=== PATIENT | female | born 1975 | race Caucasian/White ===

== ENCOUNTER 2023-09-13 09:28 | Day surgery (SDC) | payer BC, SELFPAY ==
[2023-09-13] MEDS: LACTATED RINGERS 1000 ML 1,000 ML 100 ML IV (09:45)
[2023-09-13 10:03] VITALS: BP 136/83; PULSE 52; RESP 16; TEMP 36.3; O2SAT 95
[2023-09-13 10:04] VITALS: BMI 51.2
[2023-09-13] MEDS: BUPIVACAINE 0.25% 30 ML INJECTION (11:24)
[2023-09-13] MEDS: CEFAZOLIN 1 GM inj IVP (11:31)
--- NOTE | 2023-09-13 11:46 | SUR.OPER ---
LOCAL BLOCK COMPLETED PER SURGEON AT 1124; TIMEOUT COMPLETED AT THAT TIME
--- NOTE | 2023-09-13 12:09 | W.ANESCHARGE ---
Anesthesia Charges Start Date/Time Anesthesia Start Date: 09/13/23 Anesthesia Start Time: 11:28 Stop Date/Time Anesthesia Stop Date: 09/13/23 Anesthesia Stop Time: 12:28
[2023-09-13 12:27] VITALS: BP 106/64; PULSE 78; RESP 16; TEMP 36.2; O2SAT 95
--- NOTE | 2023-09-13 12:29 | W.PM.PODPROC ---
Date of Procedure: 09/13/23 Surgeon: Yousif Patricio DPM Pre-op Diagnosis: Ganglion cyst right foot Post-op Diagnosis: ganglion cyst right foot Type of Procedure: 1. excision of ganglion cyst right foot Indications: patient had recurring ganglion cyst not resolving with aspiration. She elected proceed with surgical excision. I reviewed the procedure, recovery, expectation potential complications. We discussed recurrence rates approximate 10% with excision. we also discussed possible infection, nerve injury, poor wound healing and potential need for future surgery. We also discussed risks for deep venous thrombosis, pulmonary embolism, complex regional pain syndrome, possible she understands risks written consent was obtained. Site marked. Procedure Description: Patient brought the operating room placed supine position on operating table. IV sedation was initiated local anesthetic injected into the right foot. She was prepped and draped in a sterile fashion. Standard time-out protocol followed. Linear incision made over the 1st intermetatarsal space Dorsal foot. Incision was carried down through skin subcutaneous tissues. Cystic mass was identified and blunt dissection utilized to free up the proximal aspect of the cyst. The cyst appeared to be incorporated within the dorsal interossei musculature. Tissue was stripped with the 2nd metatarsal periosteum excising the cyst in total working distally. Portions of the interossei muscle also excised but the distal tendon left intact. Mass sent to pathology. Wound was irrigated normal sterile saline. Tourniquet was released and all bleeding vessels cauterized. Subcutaneous tissues reapproximated 4-0 Monocryl and skin closed with 4-0 Prolene. Sterile dressing was applied. She was transferred from OR to PACU vital signs stable and vascular status intact to the right foot. She will be discharged home per same-day surgery protocol was. She was given oxycodone for pain. sHe is weight-bearing as tolerated. She will follow up in clinic in 3 days. Anesthesia: MAC and local Hemostasis: ankle Estimated blood loss (mL): 2 Specimens: specimen obtained, sent to pathology Disposition: same day
[2023-09-13 12:42] VITALS: BP 112/77; PULSE 71; RESP 16; O2SAT 93
--- NOTE | 2023-09-13 12:50 | W.ANESCHARGE ---
Anesthesia Charges Start Date/Time Anesthesia Start Date: 09/13/23 Anesthesia Start Time: 11:28 Stop Date/Time Anesthesia Stop Date: 09/13/23 Anesthesia Stop Time: 12:28
== END 2023-09-13 13:13 | disposition home or self-care (01) ==
PROVIDERS: PCP Physician Assistant; Visit Provider Podiatrist
PROC: (CPT 28090; principal; 2023-09-13 11:00)
DX: M67.471 Ganglion, right ankle and foot (principal)
CPT/HCPCS: 28090; 01470; 88304; J0665; J0690; J2250; J2405; J2704; J3010; J3490; J7120